=== PATIENT | female | born 1995 | race Caucasian/White ===

== ENCOUNTER 2017-07-07 12:59 | Emergency (ER) | payer OTHER ==
[~2017-07-07] VITALS: Ht 162.6 cm; Wt 49.1 kg
[2017-07-07 13:01] VITALS: BP 123/68; PULSE 70; RESP 14; TEMP 98.5; O2SAT 100
--- NOTE | 2017-07-07 15:03 | RADRPT ---
EXAM DATE/TIME: 07/07/2017 14:52 [facility] COMPARISON: No previous studies available for comparison. INDICATIONS : Chest pain. MEDICAL HISTORY : None. SURGICAL HISTORY : None. ENCOUNTER: Initial ACUITY: 1 day PAIN SCORE: 3/10 LOCATION: Bilateral chest FINDINGS: PA and lateral views of the chest demonstrate the lungs to be symmetrically aerated without evidence of mass, infiltrate or effusion. The cardiomediastinal contours are unremarkable. Mild scoliosis of the thoracolumbar spine is noted. CONCLUSION: No acute cardiopulmonary disease. Mild scoliosis of the thoracolumbar spine. Varghese Stark MD on July 07, 2017 at 15:00 Board Certified Radiologist. This report was verified electronically.
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
[2017-07-07] MEDS ORDERED: CYCL5TAB PO ×2 (15:04→17:09)
[2017-07-07] MEDS ORDERED: IBUP-232 PO ×2 (15:04→17:09)
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
== END 2017-07-07 17:12 | disposition home or self-care (01) ==
LOC: NEPK 12:59
DX: S20.219A Contusion of unspecified front wall of thorax, initial encounter (principal); S13.4XXA Sprain of ligaments of cervical spine, initial encounter; V43.52XA Car driver injured in collision with other type car in traffic accident, initial encounter
CPT/HCPCS: 70450; 71046; 72125; 99284